=== PATIENT | male | born 1935 ===

== ENCOUNTER 2017-12-27 09:24 | Inpatient (IN) | payer OTHER ==
[~2017-12-27] VITALS: Ht 180.3 cm; Wt 79.8 kg
== END 2018-01-08 16:57 | disposition home health service (06) | DRG 335 ==
LOC: ER 09:24 → MEDJ 19:38 → SURG 19:38 → MEDI 01-03 15:59
PROVIDERS: Surgery
PROC: 4A033R1 Measurement of Arterial Saturation, Peripheral, Percutaneous Approach (ICD-10-PCS; 2017-12-27)
PROC: 3E0F7GC Introduction of Other Therapeutic Substance into Respiratory Tract, Via Natural or Artificial Opening (ICD-10-PCS; 2017-12-27)
PROC: BW21Y0Z Computerized Tomography (CT Scan) of Abdomen and Pelvis using Other Contrast, Unenhanced and Enhanced (ICD-10-PCS; 2017-12-27)
PROC: BW21Y0Z Computerized Tomography (CT Scan) of Abdomen and Pelvis using Other Contrast, Unenhanced and Enhanced (ICD-10-PCS; 2017-12-30)
PROC: 0DN80ZZ Release Small Intestine, Open Approach (ICD-10-PCS; principal; 2018-01-01 14:15)
DX: K56.51 Intestinal adhesions [bands], with partial obstruction (principal); J69.0 Pneumonitis due to inhalation of food and vomit; A41.9 Sepsis, unspecified organism; E86.0 Dehydration; G20 Parkinson's disease; K59.09 Other constipation; E87.6 Hypokalemia; K40.90 Unilateral inguinal hernia, without obstruction or gangrene, not specified as recurrent; Z78.1 Physical restraint status